=== PATIENT | female | born 1975 | race Caucasian/White ===

== ENCOUNTER 2019-05-10 09:39 | Outpatient (CLI) | payer MEDICARE, MEDICAID, SELFPAY ==
--- NOTE | ~2019-05-10 | CT_ITS ---
EXAMINATION: CT brain wo/w con EXAM DATE: 05/10/2019 10:22 INDICATION: Tremors, polyneuropathy. TECHNIQUE: Spiral CT of the head was performed without contrast. Axial, coronal and sagittal images were reviewed. The dose-length product (DLP) for this examination was 1210.67 mGy-cm. Patient was th en injected with 100 cc Omnipaque 350 intravenous contrast and reimaged. Postcontrast axial, coronal , sagittal reformatted images reviewed. The exposure was tailored according to patient size, and iter ative reconstruction (ASIR) was used as additional dose reduction technique. Comparison is made to pr ior examination from 01/20/2017. FINDINGS: There is no acute intraparenchymal hemorrhage. No evidence of intraparenchymal brain mass lesion. No evidence of acute infarction. There is no mass effect or midline shift. The ventricles are normal in size. There are no extra-axial collections. There are no acute calvarial fractures. T he orbits are unremarkable. Soft tissue is unremarkable. The visualized sinuses and mastoid air yun ls are well aerated. There are no areas of abnormal enhancement on the postcontrast images. IMPRESSION: Normal head CT examination. Reviewed, dictated and finalized at location B. 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
== END 2019-05-10 09:40 | disposition home or self-care (01) ==
LOC: ANHIMG 09:52
DX: R25.1 Tremor, unspecified (principal); G62.9 Polyneuropathy, unspecified
CPT/HCPCS: 70470; Q9967

== ENCOUNTER 2021-07-07 13:27 | Emergency (ER) | payer OTHER, SELFPAY ==
--- NOTE | ~2021-07-07 | CT_ITS ---
EXAMINATION: CT abdomen pelvis w con DATE: 07/07/2021 16:34 INDICATION: Right lower quadrant abdominal pain TECHNIQUE: Computed tomography (CT) of the abdomen and pelvis was performed with 100 mL Omnipaque-350 intravenous contrast. Automated exposure control and iterative reconstruction technique were employe d. The dose-length product was 230.47 mGy-cm. COMPARISON: 04/03/2019 FINDINGS: Lung bases are clear. No pleural effusion. Heart size is normal. No pericardial effusion. Cardiac pac emaker lead tip at the apex of the right ventricle. Liver, gallbladder, spleen, pancreas, bilateral a drenal glands and left kidney are normal. Mild right hydronephrosis with 2 mm at least partially obst ructing stone at the right ureterovesicular junction. Bowels including the appendix are normal. 2.4 c m left adnexal cyst/follicle. Right adnexa and anteverted uterus are normal. No free intraperitoneal gas or fluid. No pathologically enlarged abdominal or pelvic lymphadenopathy. Bones are unremarkable. IMPRESSION: 1. 2 mm at least partially obstructing stone at the right ureterovesicular junction with mild right h ydronephrosis. Reviewed, dictated and finalized at location B. IMPRESSION: 1. 2 mm at least partially obstructing stone at the right ureterovesicular junc tion with mild right hydronephrosis.
--- NOTE | ~2021-07-07 | US_ITS ---
EXAMINATION: US pelvic complete w TV DATE: 07/07/2021 15:58 INDICATION: Right adnexal pain TECHNIQUE: Multiple transabdominal and endovaginal sonographic images of the pelvis were obtained. COMPARISON: None. FINDINGS: The uterus measures 7.7 x 3.4 x 3.8 cm. Scarring in the lower anterior uterine segment is c onsistent with prior section. The endometrial complex measures 6 mm. The right ovary measure s 1.4 x 0.7 x 0.7 cm. The left ovary measures 3.0 x 1.5 x 1.6 cm. There is normal vascular flow in th e ovaries. There is no free fluid in the pelvis. IMPRESSION: 1. No sonographic correlate for the patient's symptoms. Reviewed, dictated and finalized at location F.
[2021-07-07 13:33] VITALS: BP 144/98; PULSE 104; RESP 18; TEMP 36.2; O2SAT 100
[2021-07-07 14:27] LABS: Basophils Percent Auto 0.4 % (0.2-1.2); Eosinophils Absolute Auto 0.2 K/mm3 (0-0.3); Eosinophils Percent Auto 1.4 % (0-4.4); Hematocrit 47.9 % (37.0-47.0); Hemoglobin 16.3 g/dL (12.0-15.0); Immature Granulocyte Absolute 0.05 K/mm3 (0.00-0.031); Immature Granulocyte Percent A 0.5 % (0-0.5); Lymphocytes Percent Auto 13.5 % (18.3-44.2); Mean Corpuscular Hemoglobin 30.8 pg (26-34); Mean Corpuscular Volume 90.5 fl (80-100); Mean Platelet Volume 10.6 fl (7.4-10.4); Monocytes Absolute Auto 0.5 K/mm3 (0.1-0.6); Monocytes Percent Auto 4.4 % (2.6-8.5); Neutrophils Absolute Auto 8.9 K/mm3 (1.3-6.7); Neutrophils Percent Auto 79.8 % (45.5-73.1); Platelet Count Result 328 k/mm3 (150-375); Red Blood Count 5.29 M/mm3 (4.2-5.4); Red Cell Distribution Width 12.9 % (11.5-14.5); White Blood Count 11.1 K/mm3 (4.5-10.0)
[2021-07-07 14:35] VITALS: BP 173/102; PULSE 88; RESP 18; O2SAT 98
[2021-07-07 14:40] LABS: Alanine Aminotransferase 22 U/L (4-35); Albumin Level 5.7 g/dL (3.5-5.1); Alkaline Phosphatase 147 U/L (38-126); Anion Gap 18 mmol/L (8-16); Aspartate Amino Transferase 33 U/L (14-36); Bilirubin,Total 1.2 mg/dL (0.2-1.3); Blood Urea Nitrogen 17 mg/dL (7-17); Calcium 10.3 mg/dL (8.4-10.2); Carbon Dioxide 18 mmol/L (22-30); Chloride 103 mmol/L (98-107); Estimated CRCL calculation 55 ml/min; Estimated Glomerular Filt Rate > 60; Glucose 122 mg/dL (65-110); Potassium 4.6 mmol/L (3.4-5.0); Sodium 139 mmol/L (137-145)
[2021-07-07] MEDS: MORPHINE SULFATE (*CRX) 4 MG/ML INJ IV PUSH (14:48)
--- NOTE | 2021-07-07 15:08 | PC.NURSE ---
pt to US via w/c
[2021-07-07 15:24] LABS: Add Urine Microscopic? YES; Appearance Urine Cloudy (Clear); Bilirubin Urine Negative (Negative); Blood Urine 3+ (Negative); Color Urine Yellow (Yellow); Glucose Urine UA Negative (Negative); Ketones Urine Trace mg/dL (Negative); Leukocyte Esterase Ur Negative LEU/UL (Negative); Nitrate Urine Negative (Negative); Protein Urine 1+ mg/dL (Negative); RBC Urine >75 /hpf (0-2); Urobilinogen Urine Negative mg/dL (<2.0); WBC Urine 0-3 /hpf
--- NOTE | 2021-07-07 15:52 | PC.NURSE ---
pt returned from US
[2021-07-07 15:57] VITALS: BP 125/83; PULSE 85; RESP 18; O2SAT 100
--- NOTE | 2021-07-07 16:21 | ED.ABDPAIN ---
HPI - Abdominal Pain General Chief Complaint: Abdominal Pain Stated Complaint: R. sided abd pain Time Seen by Provider: 07/07/21 14:33 History of Present Illness HPI narrative: Patient is a 45-year-old female who presents to the ER with sudden onset right-sided abdominal pain. Located lower and upper quadrants. No radiation. Sharp and constant. Patient reports she began having vaginal bleeding last night. She has not had a menstrual period in 1 year. She reports she is not sexually active. She has not taken a test. No vaginal discharge. Denies any aggravating or factors. No nausea or vomiting. No shortness of breath. She does still have an appendix. No history of kidney stones. Related Data Allergies Allergy/AdvReac Type Severity Reaction Status Date / Time No Known Allergies Allergy Verified 01/20/17 14:55 Review of Systems Review of Systems: All systems reviewed & are unremarkable except as noted in HPI and below Constitutional: Constitutional: Denies chills, Denies fever(s) and Denies weakness ENT: Denies nasal congestion and Denies sore throat Cardiovascular: Cardiovascular: Denies chest pain, Denies rapid heart rate and Denies radiating jaw, neck or arm pain Respiratory: Respiratory: Denies cough, Denies dyspnea and Denies wheezing Gastrointestinal: Gastrointestinal: Reports abdominal pain, Denies nausea and Denies vomiting Genitourinary: Genitourinary: Reports abnormal vaginal bleeding, Denies nocturia, Denies dysuria and Reports pelvic pain PMFSH Past Medical History Medical History (Updated 07/07/21 @ 17:58 by Jean Mckinney MD) Anxiety CHF (congestive heart failure) Depression Surgical History Surgical History AICD (automatic cardioverter/defibrillator) present History of Family History Family History Grandparent Family history of lung cancer Social History Social History Smoking status: Never smoker Second hand tobacco smoke exposure: No Smoking end date: 03/13/05 Alcohol intake: never Substance use type: marijuana Exam Narrative: GENERAL: Uncomfortable-appearing, well-nourished, and in milddistress. HEAD: Normocephalic, atraumatic. ENT: Mucous membranes moist. CHEST: Clear to auscultation. No respiratory distress. HEART: Regular rate and rhythm. Normal peripheral pulses. ABDOMEN: Soft, right sided tenderness w/o guarding, nondistended. EXTREMITIES: Normal range of motion. No edema. SKIN: Warm, dry, no rash. NEURO: Alert and oriented x3. PSYCH: Normal mood and affect. Course Course Emergency Course: Patient informed of results. Pain improved with Toradol and morphine. No longer vomiting. Discharge home with supportive care. Vital Signs Vital signs: Vital Signs Temperature 97.1 F L 07/07/21 13:33 Pulse Rate 104 H 07/07/21 13:33 Respiratory Rate 18 07/07/21 13:33 Blood Pressure 144/98 H 07/07/21 13:33 Pulse Oximetry 100 07/07/21 13:33 Temperature 97.1 F L 07/07/21 13:33 Pulse Rate 80 07/07/21 17:49 Respiratory Rate 18 07/07/21 17:49 Blood Pressure 121/98 H 07/07/21 17:49 Pulse Oximetry 100 07/07/21 17:49 MDM - Abdominal Pain Lab Data Result diagrams: 07/07/21 14:21 07/07/21 14:21 Labs: Lab Results 07/07/21 07/07/21 07/07/21 Range/Units 14:21 14:21 14:45 WBC 11.1 H (4.5-10.0) K/mm3 RBC 5.29 (4.2-5.4) M/mm3 Hgb 16.3 H D (12.0-15.0) g/dL Hct 47.9 H (37.0-47.0) % MCV 90.5 (80-100) fl MCH 30.8 (26-34) pg MCHC 34.0 (32-36) g/dl RDW 12.9 (11.5-14.5) % Plt Count 328 (150-375) k/mm3 MPV 10.6 H (7.4-10.4) fl Immature Gran % (Auto) 0.5 (0-0.5) % Neut % (Auto) 79.8 H (45.5-73.1) % Lymph % (Auto) 13.5 L (18.3-44.2) % Delta % (Auto) 4.4 (2.6-8.5) % Eos % (Auto)
--- NOTE | 2021-07-07 16:31 | PC.NURSE ---
Pt returned from CT
[2021-07-07] MEDS: KETOROLAC 30 MG/ML VIAL (*BKC) IV PUSH (17:05)
[2021-07-07 17:49] VITALS: BP 121/98; PULSE 80; RESP 18; O2SAT 100
[2021-07-07 18:11] VITALS: BP 102/78; PULSE 77; RESP 18; O2SAT 98
== END 2021-07-07 18:12 | disposition home or self-care (01) ==
PROVIDERS: Emergency Medicine; Emergency Provider Emergency Medicine
DX: N13.2 Hydronephrosis with renal and ureteral calculous obstruction (principal); I50.9 Heart failure, unspecified; Z95.810 Presence of automatic (implantable) cardiac defibrillator
CPT/HCPCS: 36415; 51701; 74177; 76830; 76856; 80053; 81001; 81025; 85025; 96374; 96375; 99284; J1885; J2270; Q9967

== ENCOUNTER 2023-07-15 13:02 | Emergency (ER) | payer OTHER, SELFPAY ==
--- NOTE | ~2023-07-15 | CT_ITS ---
EXAMINATION: CT brain wo con DATE: 07/15/2023 14:19 INDICATION: headache . TECHNIQUE: Computed tomography (CT) of the head was performed without intravenous contrast. The mA wa s adjusted according to patient size. Iterative reconstruction technique was employed. The dose-lengt h product was 529.67 mGy-cm. COMPARISON: 05/10/2019. FINDINGS: No acute intracranial hemorrhage or extra-axial fluid collection. No hydrocephalus, mass, or herniation. No acute ischemic infarct. Unremarkable dural venous sinus attenuation. No acute osseous abnormality. The aerated spaces are clear. IMPRESSION: No acute intracranial process. Reviewed, dictated and finalized at location K.
[2023-07-15 13:03] VITALS: BP 156/102; PULSE 97; RESP 18; TEMP 36.2; O2SAT 100
[2023-07-15] MEDS: SODIUM CHLORIDE 0.9% IV 1,000 ML 999 ML IV CONT (14:03)
[2023-07-15] MEDS: METOCLOPRAMIDE HCL INJ 10 MG/2 ML VIAL IV PUSH (14:04)
[2023-07-15] MEDS: KETOROLAC 30 MG/ML VIAL (*BKC) IV PUSH (14:04)
[2023-07-15] MEDS: diphenhydrAMINE HCl INJ 50 MG/ML VIAL IV PUSH (14:04)
--- NOTE | 2023-07-15 14:08 | ED.HA ---
HPI - Headache General Chief Complaint: Headache Stated Complaint: headache Time Seen by Provider: 07/15/23 13:47 Source: patient Mode of arrival: ambulatory Limitations: no limitations History of Present Illness HPI Narrative: 47 years old white female drove herself to the emergency room because of right frontal headache for the last 7 days, intermittent, denies relieving or aggravating factors, history of migraine headache similar to this 1 but is not sure if today is worse or not. Last migraine headache was 6 months ago. She reports a lot of stress lately. She denies any fever, chills, nausea, vomiting, upper respiratory symptoms or focal neuro deficit. Been taking Tylenol ibuprofen without improvement. Patient smokes marijuana daily, does not take medicine at home LAST MENSTRUAL CYCLE 2 YEARS AGO, PATIENT BELIEVES THAT SHE IS IN MENOPAUSE AND PROBABLY HAS SOMETHING TO DO WITH HER HEADACHE. Related Data Allergies Allergy/AdvReac Type Severity Reaction Status Date / Time No Known Allergies Allergy Verified 01/20/17 14:55 Review of Systems Review of Systems: All systems reviewed & are unremarkable except as noted in HPI and below PMFSH Past Medical History Medical History (Updated 07/15/23 @ 16:31 by Zhane Mcmullen MD) Anxiety CHF (congestive heart failure) Depression Surgical History Surgical History AICD (automatic cardioverter/defibrillator) present History of Family History Family History Grandparent Family history of lung cancer Social History Social History Smoking status: Never smoker Second hand tobacco smoke exposure: No Smoking end date: 03/13/05 Alcohol intake: never Substance use type: marijuana Exam Narrative: General appearance: Well-developed, well-nourished Skin: Normal color Head: Normocephalic, nontraumatic Eyes: Clear conjunctiva ENT: Oropharynx normal, ears normal, nose normal Neck: Supple, nontender Chest and respiratory: Airway patent, no respiratory distress, no accessory muscle use Heart: Regular rate/rhythm Abdomen: Soft, nontender, no organomegaly, quiet bowel sounds Vascular: Normal peripheral pulses, normal capillary refill. Musculoskeletal: Normal range of motion, nontender back Neurologic: Alert and oriented ?3, IP LITIGATION ASSOCIATE is normal as tested, no gross motor deficit Course Vital Signs Vital signs: Vital Signs Temperature 36.2 C L 07/15/23 13:03 Pulse Rate 97 07/15/23 13:03 Respiratory Rate 18 07/15/23 13:03 Blood Pressure 156/102 H 07/15/23 13:03 Pulse Oximetry 100 07/15/23 13:03 Oxygen Delivery Room Air 07/15/23 13:03 Temperature 36.2 C L 07/15/23 13:03 Pulse Rate 97 07/15/23 13:03 Respiratory Rate 18 07/15/23 13:03 Blood Pressure 156/102 H 07/15/23 13:03 Pulse Oximetry 100 07/15/23 13:03 Oxygen Delivery Room Air 07/15/23 13:03 MDM - Headache MDM Narrative Medical decision making narrative: PATIENT PRESENTS WITH RIGHT FRONTAL HEADACHE, SIMILAR TO HER MIGRAINE CT SCAN OF THE HEAD SHOWED NO ACUTE ABNORMALITIES, THE PATIENT RECEIVED A L OF NORMAL SALINE, 30 MG OF TORADOL IV, 50 MG OF BENADRYL IV, 10 MG REGLAN IV WITH SIGNIFICANT IMPROVEMENT. MIGRAINE, STRESS, MENOPAUSE ARE HIGH LIKELY THE UNDERLYING CAUSE OF PATIENT'S SYMPTOMS. DISCHARGED ON EXCEDRIN NEEDED Differential Diagnosis Differential diagnosis: Likely other ( ABOVE) Imaging Data Radiologist's impression: Impressions Head CT 07/15/23 14:21 IMPRESSION: No acute intracranial
[2023-07-15 16:39] VITALS: BP 164/92; PULSE 86; RESP 16; O2SAT 98
== END 2023-07-15 16:35 | disposition home or self-care (01) ==
PROVIDERS: Emergency Provider Emergency Medicine
DX: R51.9 Headache, unspecified (principal); I50.9 Heart failure, unspecified; Z95.810 Presence of automatic (implantable) cardiac defibrillator; Z87.891 Personal history of nicotine dependence
CPT/HCPCS: 70450; 96361; 96374; 96375; 99284; J1200; J1885; J2765; J7030

== ENCOUNTER 2023-08-17 09:18 | Emergency (ER) | payer OTHER, SELFPAY ==
--- NOTE | ~2023-08-17 | CT_ITS ---
EXAMINATION: CT cervical spine wo con DATE: 08/17/2023 10:17 INDICATION: Cervical radiculopathy. Neck pain. Left arm pain. TECHNIQUE: Computed tomography (CT) of the cervical spine was performed without intravenous contrast. Automated exposure control and iterative reconstruction technique were employed. The dose-length pro duct was 169.13 mGy-cm. COMPARISON: None FINDINGS: There is mild scarring at the lung apices. There is mild emphysema. There is cerumen in lef t external auditory canal. There is kyphosis of cervical spine. There is mild chronic anterior wedgin g of C7, T1, and T3 vertebral bodies. There is severely decreased disc height at C4-C5 and C5-C6. The following disc levels are specifically discussed: C2-C3: There is mild left uncovertebral joint osteoarthritis. There is no facet joint osteoarthritis. There is no neural foraminal stenosis. There is no central canal stenosis. C3-C4: There is moderate left uncovertebral joint osteoarthritis. There is no facet joint osteoarthri tis. There is mild left neural foraminal stenosis. There is mild central canal stenosis. C4-C5: There is severe bilateral uncovertebral joint osteoarthritis. There is no facet joint osteoart hritis. There is mild right and moderate left neural foraminal stenosis. There is moderate central ca nal stenosis. C5-C6: There is severe bilateral uncovertebral joint osteoarthritis. There is mild bilateral facet opoja int osteoarthritis. There is moderate bilateral neural foraminal stenosis. There is moderate central canal stenosis. C6-C7: There is no uncovertebral joint osteoarthritis. There is no facet joint osteoarthritis. There is no neural foraminal stenosis. There is no central canal stenosis. C7-T1: There is no uncovertebral joint osteoarthritis. There is mild bilateral facet joint osteoarthr itis. There is no neural foraminal stenosis. There is no central canal stenosis. IMPRESSION: 1. Severe cervical spondylosis. Reviewed, dictated and finalized at location A.
[2023-08-17 09:28] VITALS: BP 147/94; PULSE 100; RESP 20; TEMP 36.6; O2SAT 100
[2023-08-17 09:59] VITALS: BP 133/89; PULSE 94; RESP 12; O2SAT 98
--- NOTE | 2023-08-17 10:00 | ED.EXTPRO ---
HPI - Extremity Problem General Chief complaint: Extremity Problem,Nontraumatic Stated complaint: left arm pain Time Seen by Provider: 08/17/23 09:53 History of Present Illness HPI Narrative: 47-year-old female presents to emergency department with concerns for pinched nerve in her neck for a couple weeks. Patient states the pain starts in her neck and radiates down the lateral aspect of her upper arm, the dorsum of her forearm and wraps into the left thumb. She states it is a sharp and shooting pain, sometimes numb and tingling. The pain is worse with leftward and rightward rotation as well as looking up and down. She denies injury or trauma to her neck, clumsiness with her hands or dropping objects, she denies fever, or headache. She denies other numbness, weakness or tingling to the remainder of her body Related Data Allergies Allergy/AdvReac Type Severity Reaction Status Date / Time No Known Allergies Allergy Verified 08/17/23 09:20 Review of Systems Review of Systems: CONSTITUTIONAL: Denies fever, chills, or sweats. EYES: Denies visual changes, redness, or discharge. ENT: Denies rhinorrhea, congestion, sore throat, or otalgia. CARDIOVASCULAR: Denies chest pain, palpitations, or edema. RESPIRATORY: Denies cough or dyspnea. GASTROINTESTINAL: Denies abdominal pain, nausea, vomiting, or diarrhea. GENITOURINARY: Denies dysuria or hematuria. SKIN: Denies rash or itching. MUSCULOSKELETAL: See HPI NEUROLOGIC: Denies headache, numbness, or weakness. PSYCHIATRIC: Denies anxiety or depression. [facility] Past Medical History Medical History (Updated 08/17/23 @ 10:47 by Yanet Vega PA-C) Anxiety CHF (congestive heart failure) Depression Surgical History Surgical History AICD (automatic cardioverter/defibrillator) present History of Family History Family History Grandparent Family history of lung cancer Social History Social History Smoking status: Never smoker Second hand tobacco smoke exposure: No Smoking end date: 03/13/05 Alcohol intake: never Substance use type: marijuana Exam Narrative: GENERAL: Well-appearing, well-nourished, and in no acute distress. HEAD: Normocephalic, atraumatic. NECK: mild tenderness around C6 and C7 without step-offs, crepitus or obvious deformities. Tenderness to the left paraspinous muscles. Full range of motion of her neck with worsening pain with all movements. CHEST: Clear to auscultation. No respiratory distress. HEART: Regular rate and rhythm. No murmur heard. Normal peripheral pulses. EXTREMITIES: Full active and passive range of motion of left shoulder, elbow and wrist. Radial pulse 2 +. Cap refill less than 2 in all fingers. some reported decrease in sensation to the left thumb, otherwise sensation intact throughout upper extremity. Radian, medial and ulnar nerves are intact. pharmacovigilance specialist strength, wrist flexion and extension, elbow flexion and extension and shoulder abduction and adduction 5/5 bilaterally. Negative Adson's test. SKIN: Warm, dry, no rash. NEURO: No focal deficits. Alert and oriented x3 Course Vital Signs Vital signs: Vital Signs Temperature 97.9 F 08/17/23 09:28 Pulse Rate 100 08/17/23 09:28 Respiratory Rate 20 08/17/23 09:28 Blood Pressure 147/94 H 08/17/23 09:28 Pulse Oximetry 100 08/17/23 09:28 Oxygen Delivery Room Air 08/17/23 09:28 Temperature 97.9 F 08/17/23 09:28 Pulse Rate 94 08/17/23 09:59 Respiratory Rate 12 08/17/23 09:59 Blood Pressure 133/89 08/17/23 09:59 Pulse Oximetry 98 08/17/23 09:59 Oxygen Delivery Room Air 08/17/23 09:28 MDM - Extremity (Nontraumatic) MDM Narrative Medical decision making narrative: 47-year-old female presents to emergency department with co
[2023-08-17] MEDS: LIDOCAINE 5% PATCH 1 PATCH TRANSDERM (10:07)
[2023-08-17] MEDS: CYCLOBENZAPRINE HCL 10 MG TABLET PO (10:08)
[2023-08-17] MEDS: KETOROLAC 30 MG/ML VIAL (*BKC) IM (10:08)
[2023-08-17 10:54] VITALS: BP 133/89; PULSE 95; RESP 18; O2SAT 100
== END 2023-08-17 10:56 | disposition home or self-care (01) ==
PROVIDERS: Emergency Provider Physician Assistant
DX: M47.22 Other spondylosis with radiculopathy, cervical region (principal); I50.9 Heart failure, unspecified; Z95.810 Presence of automatic (implantable) cardiac defibrillator; Z87.891 Personal history of nicotine dependence; Z79.899 Other long term (current) drug therapy
CPT/HCPCS: 72125; 96372; 99284; A9270; J1885